=== PATIENT | male | born 1960 | race African-American/Black ===

== ENCOUNTER → 2020-03-20 14:12 | Outpatient (BNVA) | payer MEDICARE, MEDICAID, SELFPAY | PROVIDERS: Visit Provider Nurse Practitioner | DX: D12.6 Benign neoplasm of colon, unspecified (principal); B18.2 Chronic viral hepatitis C; F17.210 Nicotine dependence, cigarettes, uncomplicated; Z88.6 Allergy status to analgesic agent | CPT/HCPCS: 99212 ==

== ENCOUNTER 2020-04-02 08:32 | Outpatient (REF) | payer MEDICARE, MEDICAID, SELFPAY ==
[2020-04-02 09:09] LABS: MANUAL DIFF FLAG NO
[2020-04-02 09:18] LABS: Basophils Absolute Auto 0.1 X10*3/uL (0.0-0.2); Eosinophils Absolute Auto 0.1 X10*3/uL (0.0-0.4); Eosinophils Percent Auto 1.4 % (0-4); Hematocrit 47.2 % (42-52); Imm Gran Abs Auto 0.02 X10*3/uL (0.00-0.03); Imm Gran Pct Auto 0.4 % (0.0-0.4); Lymphocytes Absolute Auto 1.3 X10*3/uL (1.2-4.9); Lymphocytes Percent Auto 27.2 % (20-40); Mean Corpuscular HGB Conc 33.9 g/dl (31.0-36.0); Mean Corpuscular Volume 88.4 fL (80-98); Mean Platelet Volume 9.5 fL (9.4-12.4); Monocytes Absolute Auto 0.5 X10*3/uL (0.1-1.2); Monocytes Percent Auto 10.1 % (2-11); Neutrophils Percent Auto 59.9 % (45-73); Platelet Count 211 X10*3/uL (160-400); Red Blood Count 5.34 X10*6/uL (4.60-5.80); Red Cell Distribution Width 12.5 % (11.0-16.0); White Blood Count 4.9 X10*3/uL (4.8-10.8)
[2020-04-02 09:45] LABS: Alanine Aminotransferase 16 U/L (0-40); Alkaline Phosphatase 81 U/L (39-117); Anion Gap 9 (12-20); Aspartate Amino Transferase 18 U/L (5-37); Bilirubin Total 0.7 mg/dL (0.0-1.0); Blood Urea Nitrogen 12 mg/dL (9-16); Carbon Dioxide 30 mmol/L (22-29); Chloride 101 mmol/L (96-108); Estimated Glomerular Filt Rate > 60; Glucose Random 124 mg/dL (60-115); Potassium 3.7 mmol/l (3.3-5.1); Sodium 136 mmol/L (135-145); Total Protein 7.5 g/dL (6.5-8.0)
== END 2020-04-02 08:33 | disposition home or self-care (01) ==
LOC: HO.LAB 08:32
PROVIDERS: Visit Provider Nurse Practitioner
DX: D12.6 Benign neoplasm of colon, unspecified (principal)
CPT/HCPCS: 36415; 80053; 85025

== ENCOUNTER 2020-04-22 06:38 | Day surgery (SDC) | payer MEDICARE, MEDICAID, SELFPAY ==
[2020-04-17 12:50] VITALS: BMI 28.5
[2020-04-22 06:45] VITALS: BP 114/77; PULSE 74; RESP 16; TEMP 36; O2SAT 97
--- NOTE | 2020-04-22 07:13 | HO.ANESPROP2 ---
[facility] Past Medical History Medical History Hx of bipolar disorder Hx of hepatitis C Hypertension Mood disorder Family History Family History (Updated 03/20/20 @ 14:17 by EKATERINA Mills) Mother High blood pressure Father Caroline Gehrig disease Sister Lupus Surgical History Surgical History H/O esophagogastroduodenoscopy H/O hemorrhoidectomy H/O spinal fusion H/O toe surgery Hx of colonoscopy Social History Social History (Updated 03/20/20 @ 14:18 by EKATERINA Mills) Household Members: Family Housing: Apartment Are you a primary home care assistant to a significant other at home: No Do you presently have visiting nurse or other home services: No Alcohol intake: current Alcohol intake frequency: holidays/special occasions only Alcohol type: beer Smoking Status: Current every day smoker Tobacco Type: Cigarette Packs Per Day: 0.5 Cigarettes Per Day: 10.0 Years Smoked: 20 Smoked in Last 30 Days: Yes Patient Interested in Nicotine Replacement: No Patient Given Instructions on How to Stop Smoking: Yes Date Education Initiated: 04/17/20 Use of substances other than those prescribed or required for medical reasons: No Have you been hit, kicked, punched, or otherwise hurt by someone within the past year? If so, by whom?: No Advance Directives: No Advance Directives Information Provided: No Advance Directives on File: No Recently lost weight without trying: No Meds Allergies Allergy/AdvReac Type Severity Reaction Status Date / Time aspirin [ASA] Allergy Unknown AVOIDS MED Verified 04/22/20 06:45 BECAUSE OF CROHNS Home Medications Medication Instructions Recorded Confirmed Type lisinopril-hydrochlorothiazide 1 tab PO DAILY 04/17/20 04/22/20 History Exam Exam Date and Time: April 22, 2020 0713 Height,Weight and Vital Signs: Height 6 ft Weight 95.254 kg Last Vital Signs Temp 96.8 F 04/22/20 06:45 Pulse 74 04/22/20 06:45 Resp 16 04/22/20 06:45 BP 114/77 04/22/20 06:45 Pulse Ox 97 04/22/20 06:45 Airway Mallampati Class: II TM Dist: >3cm Neck ROM: Full Partial: Upper (Perm) Heart: RRR Lungs: CTA BL Assessment and Plan Assessment Anesthesia Assessment: Anesthesia Plan Discussed and Chart Reviewed Final Anesthetic Review NPO: Yes ASA Class: II Final Preanesthetic Review: Meds/Allgs Chart Reviewed and Consent Obtained/Reviewed Patient Risk: Intermediate Procedure Risk: Intermediate Anesthetic Plan Anesthetic Plan: MAC: Disposition: Standard PACU
--- NOTE | 2020-04-22 07:19 | MHC.SHP ---
Pre-Procedural Eval Section B Chief Complaint: screening Details of Present Illness: Colon cancer screening. Personal hx of TA. Mother with colon cancer. Relevant Family History (Specify if Yes): Yes Relevant Social History: None Present Medications: see Short Stay Collaborative assessment Medical History: Significant History (S/P treatment for HEP C with cleared viral load.) History of Previous Operations: Relevant previous surgery/procedure and date(s) (Colon 2014--TA) Allergies: Allergies Allergy/AdvReac Type Severity Reaction Status Date / Time aspirin [ASA] Allergy Unknown AVOIDS MED Verified 04/22/20 06:45 BECAUSE OF CROHNS Review of Systems Sugical H&P ROS: Negative: Constitution, Respiratory, Gastrointestinal and Musculoskeletal and Yes, Specify: Cardiovascular (on treatment for hypertension) Exam Surgical H&P Exam: Normal: HEENT, Normal: Heart, Normal: Lungs and Normal: Abdomen Plan Diagnosis/Plan: Unchanged Patient has been examined and remains a candidate for the planned procedureYES
[2020-04-22] MEDS: Lactated Ringers 1,000 ML 50 ML IVCONT (07:21)
[2020-04-22 08:32] VITALS: BP 112/71; PULSE 71; RESP 14; TEMP 36.2; O2SAT 97
--- NOTE | 2020-04-22 08:44 | PM.OP ---
Brief Operative Note Date of Service: 04/22/20 Pre-op diagnosis: Colon cancer screening, Mother colon cancer, patient personal hx of colon tubular adenoma Post-op diagnosis: other (Colon polyp, Diverticulosis, Internal Hemorrhoids.) Procedure: Colonscopy with cold snare polypectomy x1 Implants: no Surgeon: Rafaela Sibley MD Anesthesia: MAC (MD Cheryl/MD BECCA) Estimated blood loss (mL): 5 Pathology: other (POLYP HEPATIC FLEXURE) Condition: stable Disposition: PACU
[2020-04-22 08:47] VITALS: BP 134/99; PULSE 76; RESP 18; O2SAT 99
--- NOTE | 2020-04-22 09:16 | HO.POSTANES ---
Post Anesthesia Evaluation Post Anesthesia Evaluation Vital Signs: Vital Signs Temp Pulse Resp BP Pulse Ox 04/22/20 08:47 97.2 F 76 18 134/99 H 99 04/22/20 08:32 97.2 F 71 14 112/71 97 04/22/20 06:45 96.8 F 74 16 114/77 97 Anesthesia: Monitored Mental Status: Awake Pain Control: Satisfactory Nausea/Vomiting: None Hydration: Adequate Anesthesia-Related Issues: No Anes. Related Issues
--- NOTE | 2020-04-22 11:40 | OP_ITS ---
SURGEON: Rafaela Sibley MD PROCEDURE PERFORMED: Colonoscopy with cold snare polypectomy removal technique. ESTIMATED BLOOD LOSS: Less than 5 mL. COMPLICATIONS: No complications. ANESTHESIA: Monitored. ANESTHESIOLOGIST: Dr. Luna/Dr. Chow ASSISTANTS: NONE SPECIMENS: Specimen removed, hepatic flexure. PREOPERATIVE DIAGNOSES: Colon cancer screening, high risk, mother with history of colon cancer, personal history of tubular adenoma. The patient's care is at [facility], I am not sure of the PCP name. POSTOPERATIVE DIAGNOSES: Colonic polyp, diverticulosis right greater than left. DIRECTOR OF EVENT MANAGEMENT: Dr. Sibley. CONDITION: Postop, stable. FINDINGS: Digital rectal exam revealed decreased sphincter tone. Prostate was normal to digital palpation. Video colonoscope was introduced without difficulty. It was navigated into the rectosigmoid. Prep was generally good to fair, varying in different locations depending on the dependent portion of the colon, in that view. There was moderate amount of flushing and suctioning. Scope advanced through sigmoid, descending, transverse, ascending colon down into the cecum. Appendiceal orifice was seen. Ileocecal valve was well seen in the ascending colon. Just before the cecum, there were clusters of fairly distinct diverticula in this region due to redundancy. I switched from CO2 to room air to get better in insufflation. There was a polyp that was tucked up in the convoluted folds of the hepatic flexure. After several attempts to visualize, the polyp was stabilized in position and was able to use the cold snare polypectomy technique to remove the polyp estimated to be between 3 and 5 mm. It did have a somewhat pedunculated base which retrieved through suction. Scope continued to be redundant and was withdrawn. No additional lesions were seen on withdrawing the scope on the left side, there were some scattered diverticula appreciated on withdrawing the scope. Anorectal verge was clear. PLAN AND CURRENT RECOMMENDATIONS: Repeat asymptomatic screening in this patient, will continue to be 5 years. TYPE OF ANESTHESIA: Monitored. MARKETING ACCOUNT EXECUTIVE: No virtual office assistant. GRAFT OR IMPLANTS: No grafts or implants. Rafaela Sibley MD MEN/MODL / [id number]
== END 2020-04-22 09:15 | disposition home or self-care (01) ==
PROVIDERS: Visit Provider Internal Medicine Gastroenterology
PROC: 0DJD8ZZ Inspection of Lower Intestinal Tract, Via Natural or Artificial Opening Endoscopic (ICD-10-PCS; CPT 45378; principal; 2020-04-22 07:30)
DX: Z12.11 Encounter for screening for malignant neoplasm of colon (principal); D12.3 Benign neoplasm of transverse colon; K57.30 Diverticulosis of large intestine without perforation or abscess without bleeding; K64.8 Other hemorrhoids; Z86.010 Personal history of colon polyps; Q43.8 Other specified congenital malformations of intestine; I10 Essential (primary) hypertension; Z79.899 Other long term (current) drug therapy; Z80.0 Family history of malignant neoplasm of digestive organs
CPT/HCPCS: 45385; 88305

== ENCOUNTER → 2020-06-12 09:12 | Outpatient (BNVA) | payer MEDICAID, MEDICARE, SELFPAY | PROVIDERS: PCP Internal Medicine; Visit Provider Nurse Practitioner ==